=== PATIENT | male | born 1975 | race Caucasian/White ===

== ENCOUNTER 2021-09-23 16:03 | Outpatient (CLI) | payer OTHER ==
[2021-09-23 17:22] LABS: #Eosinphils 0.1 10x3/uL (0.0-0.5); #Monocytes 0.7 10x3/uL (0.0-1.1); #Neutrophils 4.1 10x3/uL (1.5-8.4); %Basophils 0.5 % (0.0-2.0); %Eosinophils 1.5 % (0.0-6.0); %Lymphocytes 39.2 % (18.0-47.0); %Monocytes 8.5 % (0.0-10.0); %Neutrophils 50.1 % (40.0-75.0); Mean Corpuscular HGB CONC 34.6 g/dL (32.0-36.0); Mean Corpuscular Hemoglobin 30.6 pg (27.0-33.0); Mean Corpuscular Volume 88.4 fl (81.2-95.1); Mean Platelet Volume 9.2 fl (7.4-10.4); Platelet Count 291 10x3/uL (150-450); RBC Distribution Width 12.6 % (11.5-14.5); Red Blood Cell (RBC) Count 4.58 10x6/uL (4.32-5.72); White Blood Cell (WBC) Count 8.1 10x3/uL (3.5-10.5)
[2021-09-23 17:43] LABS: ALT (SGPT) 45 U/L (8-55); AST (SGOT) 33 U/L (5-34); Albumin 4.1 g/dL (3.5-5.0); Alkaline Phosphatase 51 U/L (40-110); Anion Gap 12 mmol/L (10-20); BUN (Urea Nitrogen) 15 mg/dL (8.9-20.6); Bilirubin, Total 0.6 mg/dL (0.2-1.2); Calc. Creatinine Clearance 0 mL/min (70-130); Calcium 8.9 mg/dL (7.8-10.44); Carbon Dioxide 26 mmol/L (22-29); Globulin 3.1 g/dL (2.4-3.5); Glucose 83 mg/dL (70-105); Protein, Total 7.2 g/dL (6.0-8.3)
[2021-09-23 17:48] LABS: Chloride 106 mmol/L (98-107); Sodium 138 mmol/L (136-145)
[2021-09-24 11:23] LABS: SARS-CoV-2 PCR by NAA Not Detected (NotDetected)
== END 2021-09-23 16:04 | disposition home or self-care (01) ==
LOC: LABBT 16:03
PROVIDERS: ATTEND Specialist
DX: Z01.812 Encounter for preprocedural laboratory examination (principal); Z20.822 Contact with and (suspected) exposure to COVID-19
CPT/HCPCS: 80053; 85025; U0003; U0005

== ENCOUNTER 2021-09-28 06:03 | Day surgery (SDC) | payer OTHER ==
[2021-09-27 09:27] VITALS: BMI 39.8
[2021-09-28] MEDS ORDERED: Fentanyl 100 MCG/2 ML VIAL ONE ×2 (06:13→09:04)
[2021-09-28] MEDS ORDERED: Famotidine/PF 20 mg/2ml Vial ONE (06:14)
[2021-09-28] MEDS ORDERED: SUGAMMADEX SODIUM 200 MG/2 ML VIAL ONE (06:14)
[2021-09-28] MEDS ORDERED: Ketorolac Tromethamine 30 MG/ML VIAL ONE (06:29)
[2021-09-28] MEDS ORDERED: Acetaminophen 500 MG TAB ONE (06:29)
[2021-09-28] MEDS ORDERED: ceFAZolin 2 GM/DEX 5% 100 ML BAG ONE (06:29)
[2021-09-28] MEDS ORDERED: Lidocaine 1% w/Epinephrine 1:100K 30 ML VIAL ONE (06:47)
[2021-09-28] MEDS ORDERED: Bupivacaine 0.25% 10 ML VIAL ONE (06:47)
[2021-09-28] MEDS ORDERED: Glycopyrrolate 0.2 MG/ML 5 ML SYRINGE ONE (07:34)
[2021-09-28] MEDS ORDERED: PROPOFOL 200 MG/20 ML VIAL ONE (07:34)
[2021-09-28] MEDS ORDERED: Metoclopramide HCl 10 MG/2 ML VIAL ONE (07:34)
[2021-09-28] MEDS ORDERED: Lidocaine 1% PF 5 ML VIAL ONE (07:34)
[2021-09-28] MEDS ORDERED: Dexamethasone 20 MG/5 ML VIAL ONE (07:34)
[2021-09-28] MEDS ORDERED: Ondansetron PF 4 MG/2 ML Vial ONE (07:34)
[2021-09-28] MEDS ORDERED: Rocuronium Bromide 10 MG/ML (10ML VIAL) ONE (07:34)
== END 2021-09-28 10:09 | disposition home or self-care (01) ==
LOC: SDC 06:03
PROVIDERS: ATTEND Specialist
PROC: 0FT44ZZ Resection of Gallbladder, Percutaneous Endoscopic Approach (ICD-10-PCS; principal; 2021-09-28)
DX: K80.10 Calculus of gallbladder with chronic cholecystitis without obstruction (principal); E03.9 Hypothyroidism, unspecified; E66.01 Morbid (severe) obesity due to excess calories; Z68.39 Body mass index [BMI] 39.0-39.9, adult; Z79.899 Other long term (current) drug therapy; Z88.5 Allergy status to narcotic agent
CPT/HCPCS: 88304; C1713; J1100; J1885; J2405; J2704; J2765; J3010; S0020; S0028